=== PATIENT | female | born 1935 | race Caucasian/White ===

== ENCOUNTER 2018-09-02 09:07 | Day surgery (SDC) | payer OTHER ==
[~2018-09-02] VITALS: Ht 152.4 cm; Wt 60.3 kg
--- NOTE | ~2018-09-02 | OP ---
PATIENT NAME: BEBE PEACE MEDICAL RECORD: [id number] :35 LOCATION:D.OPS ADMISSION DATE: SURGEON: SANJIV KIM MD DATE OF OPERATION: 09/02/2018 PREOPERATIVE DIAGNOSIS: Left trigger thumb. POSTOPERATIVE DIAGNOSIS: Left trigger thumb. PROCEDURE: Left trigger thumb release. SURGEON: Sanjiv Kim MD ANESTHESIA: General. INTRAOPERATIVE COMPLICATIONS: None. SUMMARY OF PATHOLOGIC FINDINGS: The patient had a very tight pao of the MCP joint of the left thumb. OPERATIVE SUMMARY IN DETAIL: After obtaining appropriate preoperative orthopedic surgery consent as well as anesthetic consultation, evaluation and clearance, the patient was brought to the operating room and placed on the operating table in supine position. After general laryngeal mask was administered, tourniquet was placed about the proximal aspect of left upper extremity. Left upper extremity was then prepped and draped in routine sterile fashion. The arm was elevated and exsanguinated. Tourniquet was inflated to 250 mmHg. An incision was made at the base of the left thumb over the A1 pao, taken down to the level of the A1 pao. While reflecting the digital nerves, the A1 pao was incised in its entirety. Tendon was examined and found to have attritional changes, but no full thickness tearing. The wound was then irrigated and closed with 4-0 Prolene in interrupted fashion. The area was locally infiltrated with 0.25% Marcaine plain. Sterile dressings were applied. Tourniquet was deflated. The patient was awakened, taken to recovery room in stable condition. All final needle and sponge counts were correct. TRANSINT:[id number] Voice Confirmation ID: [id number] DOCUMENT ID: [id number] SANJIV KIM MD CC: [id number] DICTATION DATE: 09/05/18 0943 DESIGN LEAD: 09/05/18 1048 [facility] [place] 09/02/18 [id number] [place] [address]
[~2018-09-02 09:07] MED LIST: ASPIRIN81 MG PO; BENEFIBER1 PKT PO; BIOTIN5 MG PO; CITRACAL + D E1 EACH PO; COUMADIN2.5 MG PO; COUMADIN5 MG PO; FISH OIL 1,0001 CA1 PO; HYDROCODONE-APA1 TAB PO; MAGNESIUM GLUC500 M1 PO; MAXZIDE 75/501 TAB PO; MULTIPLE VITAMI1 TA1 PO; POTASSIUM CHLO20 MEQ PO; VITAMIN B-12500 MCG PO; VITAMIN D31000 UNI2 PO; ZOCOR20 MG PO
[2018-09-02 09:53] LABS: BASOPHILS 0.2 % (0-2); EOSINOPHILS 0.5 % (0-7); HEMATOCRIT 39.3 % (36.0-48.0); HEMOGLOBIN 13.7 g/dL (12-16); IMMATURE GRANULOCYTES 0.2 % (0-5); LYMPHOCYTES 36.2 % (15-50); MCH 30.9 pg (26.0-34.0); MCHC 34.9 g/dL (31.0-37.0); MCV 88.7 fL (80.0-100.0); MONOCYTES 8.4 % (2-11); NEUTROPHILS 54.5 % (40-80); RBC 4.43 10x6/uL (4.00-5.40); RDW 13.6 % (11.5-14.5); WBC 8.3 10x3/uL (4.8-10.8)
[2018-09-02 09:54] LABS: PLATELET COUNT 280 10x3/uL (130-400)
[2018-09-02 10:01] LABS: ANION GAP 10.4 mmol/L (8-16); CALCIUM 8.8 mg/dL (8.5-10.1); CARBON DIOXIDE 28.5 mmol/L (21.0-32.0); CREATININE - SERUM 0.9 mg/dL (0.6-1.3); POTASSIUM - SERUM 3.9 mmol/L (3.5-5.1)
[2018-09-02 10:04] LABS: APTT 28.2 SECONDS (22.8-39.4); INR 1.5 (0.85-1.17); PROTIME 17.5 SECONDS (11.6-15.0)
[2018-09-02 10:54] VITALS: BP 187/76; Ht 152.4 cm; Wt 60.3 kg
[2018-09-02] MEDS ORDERED: TRAVATAN Z2.5 ML EACH EYE (11:09)
[2018-09-02] MEDS ORDERED: HYDROCODON-ACE1 EA10 PO (13:37)
== END 2018-09-02 15:45 | disposition home or self-care (01) ==
LOC: D.OPS 09:07
PROVIDERS: Anesthesiology; ATTEND Orthopaedic Surgery
DX: M65.312 Trigger thumb, left thumb (principal)